=== PATIENT | female | born 1950 | race Caucasian/White ===

== ENCOUNTER 2016-09-24 05:55 | Emergency (ER) | payer MEDICAID ==
[~2016-09-24] VITALS: Ht 160 cm; Wt 64.0 kg
[2016-09-24] MEDS ORDERED: KETOROLAC 60MG/2ML VIAL IM ONE (06:30)
[2016-09-24] MEDS ORDERED: CYCLOBENZAPRINE 10MG TABLET PO SCH (07:00)
[2016-09-24 11:06] VITALS: BP 132/82
== END 2016-09-24 11:08 | disposition home or self-care (01) ==
LOC: ER 05:55
DX: M54.16 Radiculopathy, lumbar region (principal); F41.9 Anxiety disorder, unspecified; I10 Essential (primary) hypertension; M19.90 Unspecified osteoarthritis, unspecified site
CPT/HCPCS: 96372; 99283; J1885